=== PATIENT | female | born 1945 | race Caucasian/White ===

== ENCOUNTER 2016-07-22 13:08 | Emergency (ER) | payer OTHER ==
[~2016-07-22] VITALS: Wt 61.2 kg
[~2016-07-22 13:08] MED LIST: BENTYL10 MG PO; NKHM PO; PRILOSEC40 MG PO
[2016-07-22] MEDS ORDERED: ALAVERT10 M2 PO (13:21)
[2016-07-22] MEDS ORDERED: ALEVE220 MG PO (13:22)
[2016-07-22] MEDS ORDERED: HYDROCODONE BIT1 T11 PO (15:20)
== END 2016-07-22 13:26 | disposition home or self-care (01) ==
LOC: ED 13:08
DX: S82.832A Other fracture of upper and lower end of left fibula, initial encounter for closed fracture (principal); Z88.0 Allergy status to penicillin; Z88.1 Allergy status to other antibiotic agents; Z88.2 Allergy status to sulfonamides; Z88.6 Allergy status to analgesic agent; W18.09XA Striking against other object with subsequent fall, initial encounter; Y93.01 Activity, walking, marching and hiking; Y92.02 Mobile home as the place of occurrence of the external cause; Y99.9 Unspecified external cause status

== ENCOUNTER → 2016-09-10 | Outpatient (CLI) | payer OTHER ==
[~2016-09-10] MED LIST changes: +ALAVERT10 M2 PO; +ALEVE220 MG PO; +HYDROCODONE BIT1 T11 PO
== END | disposition home or self-care (01) ==
LOC: MAMMO 02:58
DX: C50.911 Malignant neoplasm of unspecified site of right female breast (principal); N64.4 Mastodynia

== ENCOUNTER → 2017-01-23 | Outpatient (CLI) | payer OTHER | END | disposition home or self-care (01) | LOC: RAD 02:04 | DX: Z13.820 Encounter for screening for osteoporosis (principal); S82.435K Nondisplaced oblique fracture of shaft of left fibula, subsequent encounter for closed fracture with nonunion; N95.9 Unspecified menopausal and perimenopausal disorder; M47.892 Other spondylosis, cervical region; M48.02 Spinal stenosis, cervical region; M43.12 Spondylolisthesis, cervical region; R29.890 Loss of height; X58.XXXD Exposure to other specified factors, subsequent encounter ==

== ENCOUNTER → 2017-09-11 | Outpatient (CLI) | payer OTHER | END | disposition home or self-care (01) | LOC: MAMMO 01:11 | DX: C50.319 Malignant neoplasm of lower-inner quadrant of unspecified female breast (principal); R92.8 Other abnormal and inconclusive findings on diagnostic imaging of breast; Z85.3 Personal history of malignant neoplasm of breast ==

== ENCOUNTER → 2018-09-16 | Outpatient (CLI) | payer OTHER ==
[~2018-09-16] MED LIST changes: +LIPITOR20 MG PO; +VITAMIN D PO
--- NOTE | ~2018-09-16 | ST ---
[place], [place] EXERCISE STRESS TEST REPORT [id number] UNIT #: [id number] ROOM: DOCTOR: CONNIE BEJARANO MD BIRTHDATE: [birth year] DOS: 09/16/2018 LEXISCAN PORTION OF THE LEXISCAN CARDIOLITE STRESS TEST Baseline cardiogram, sinus rhythm with intraventricular conduction delay of left bundle branch pattern, rate related ____ ST-T changes, 0.4 mg of Lexiscan, duration of 10 seconds. With Lexiscan, the patient had no chest discomfort, no dysrhythmia. Blood pressure and heart rate response was normal. Nuclear images will be reported separately. CONNIE BEJARANO MD CM:STRESS:EXERCISE STRESS TEST REPORT [id number] CONNIE BEJARANO MD
--- NOTE | 2018-09-16 07:40 | NUR ---
INFORMED CONSENT SIGNED FOR LEXISCAN STRESS TEST WITH DR. BEJARANO. RESTING EKG LBBB, HR 66, BP 112/74. PULSE OX 99% AND LUNGS CLEAR. COMPLETED ONE MINUTE OF LEXISCAN PROTOCOL RECEIVING LEXISCAN 0.4MG OVER [address] CHANGES NOTED WITH NO ARRHYTHMIAS. PT C/O FEELING SOB. LAST RECOVERY HR 90, BP 124/78. WAITING NUCLEAR SCANNING IN STABLE CONDITION.
== END | disposition home or self-care (01) ==
LOC: CARD 00:53
DX: R07.9 Chest pain, unspecified (principal); R06.89 Other abnormalities of breathing; R53.81 Other malaise

== ENCOUNTER → 2019-10-23 | Outpatient (CLI) | payer OTHER ==
[~2019-10-23] MED LIST changes: +BUSPAR5 MG PO
== END | disposition home or self-care (01) ==
LOC: COVID19 10-22 11:00
DX: Z01.818 Encounter for other preprocedural examination (principal); Z11.59 Encounter for screening for other viral diseases

== ENCOUNTER → 2019-10-28 | Day surgery (SDC) | payer OTHER ==
[~2019-10-28] VITALS: Ht 152.4 cm; Wt 61.2 kg
[2019-10-28 08:00] VITALS: BP 182/87
[2019-10-28 09:41] VITALS: BP 165/82
[2019-10-28 09:56] VITALS: BP 154/88
[2019-10-28 10:09] VITALS: BP 142/76
== END | disposition home or self-care (01) ==
LOC: SDC 10-23 11:00
DX: H25.812 Combined forms of age-related cataract, left eye (principal); I25.2 Old myocardial infarction; E78.00 Pure hypercholesterolemia, unspecified; E78.5 Hyperlipidemia, unspecified; F41.9 Anxiety disorder, unspecified; Z98.890 Other specified postprocedural states; Z79.899 Other long term (current) drug therapy; Z83.3 Family history of diabetes mellitus; Z82.49 Family history of ischemic heart disease and other diseases of the circulatory system

== ENCOUNTER → 2019-10-30 | Outpatient (CLI) | payer OTHER | END | disposition home or self-care (01) | LOC: COVID19 02:15 | DX: Z01.818 Encounter for other preprocedural examination (principal); Z11.59 Encounter for screening for other viral diseases ==

== ENCOUNTER → 2019-11-04 | Day surgery (SDC) | payer OTHER ==
[~2019-11-04] VITALS: Ht 152.4 cm; Wt 61.2 kg
[2019-11-04 08:00] VITALS: BP 174/83
[2019-11-04 08:53] VITALS: BP 129/78
[2019-11-04 09:08] VITALS: BP 138/79
[2019-11-04 09:22] VITALS: BP 144/77
== END | disposition home or self-care (01) ==
LOC: SDC 11-03 10:15
DX: H25.811 Combined forms of age-related cataract, right eye (principal); E78.00 Pure hypercholesterolemia, unspecified; K21.9 Gastro-esophageal reflux disease without esophagitis; F41.9 Anxiety disorder, unspecified; I25.2 Old myocardial infarction; Z88.0 Allergy status to penicillin; Z88.5 Allergy status to narcotic agent; Z88.8 Allergy status to other drugs, medicaments and biological substances; Z98.890 Other specified postprocedural states; Z79.899 Other long term (current) drug therapy; Z83.3 Family history of diabetes mellitus; Z82.49 Family history of ischemic heart disease and other diseases of the circulatory system

== ENCOUNTER → 2020-06-21 | Outpatient (CLI) | payer OTHER | END | disposition home or self-care (01) | LOC: MAMMO 06-14 13:30 | PROVIDERS: ATTEND Nurse Practitioner Family | DX: R92.1 Mammographic calcification found on diagnostic imaging of breast (principal); R92.8 Other abnormal and inconclusive findings on diagnostic imaging of breast; Z85.3 Personal history of malignant neoplasm of breast ==

== ENCOUNTER → 2020-11-01 | Outpatient (CLI) | payer OTHER | END | disposition home or self-care (01) | LOC: RAD 00:31 | PROVIDERS: ATTEND Nurse Practitioner Family | DX: M85.852 Other specified disorders of bone density and structure, left thigh (principal); Z13.820 Encounter for screening for osteoporosis ==

== ENCOUNTER → 2021-07-12 | Outpatient (CLI) | payer OTHER | END | disposition home or self-care (01) | LOC: MAMMO 07-06 09:00 | PROVIDERS: ATTEND Internal Medicine | DX: R92.1 Mammographic calcification found on diagnostic imaging of breast (principal); Z80.3 Family history of malignant neoplasm of breast; R92.2 Inconclusive mammogram; Z85.3 Personal history of malignant neoplasm of breast ==

== ENCOUNTER 2021-09-17 17:22 | Emergency (ER) | payer OTHER | END 2021-09-17 20:18 | disposition home or self-care (01) | LOC: ED 17:22 | DX: S60.221A Contusion of right hand, initial encounter (principal); Z88.0 Allergy status to penicillin; Z88.2 Allergy status to sulfonamides; Z88.8 Allergy status to other drugs, medicaments and biological substances; Z79.899 Other long term (current) drug therapy; Z90.89 Acquired absence of other organs; Z90.710 Acquired absence of both cervix and uterus; X50.9XXA Other and unspecified overexertion or strenuous movements or postures, initial encounter; Y93.89 Activity, other specified; Y92.89 Other specified places as the place of occurrence of the external cause; Y99.8 Other external cause status ==

== ENCOUNTER → 2022-12-26 | Outpatient (CLI) | payer OTHER | END | disposition home or self-care (01) | LOC: MAMMO 12:44 | PROVIDERS: ATTEND Internal Medicine | DX: R92.1 Mammographic calcification found on diagnostic imaging of breast (principal); R92.2 Inconclusive mammogram; Z85.3 Personal history of malignant neoplasm of breast ==